=== PATIENT | male | born 1950 | race Hispanic/Latino ===

== ENCOUNTER 2019-09-11 12:57 | Inpatient (IN) | payer MEDICAID, OTHER ==
[~2019-09-11] VITALS: Ht 180.3 cm; Wt 63.1 kg
[2019-09-11] VITALS (18 sets, daily range): BP systolic 104–206; BP diastolic 60–123
[~2019-09-11 12:57] MED LIST: ASPI-1005 PO; AZIT500T4 PO; BUPR-74 PO; CLOP75TA14 PO; METO25 PO; PANT40TA PO; PRED20TA3 PO
[2019-09-11] MEDS ORDERED: HEPARIN SODIUM 1000UNIT/ML 10ML VIAL ONE (13:12)
[2019-09-11] MEDS ORDERED: NITROGLYCERIN 2 MG/VIAL VIAL IV ONE (13:12)
[2019-09-11] MEDS ORDERED: IOHEXOL 350 MG/ML 100ML INFUS..BTL IV ONE (13:13)
[2019-09-11] MEDS ORDERED: LIDOCAINE HCL 2% 20ML ONE (13:13)
[2019-09-11] MEDS ORDERED: IOHEXOL-350 50ML VIAL IV ONE ×2 (13:13→20:00)
[2019-09-11] MEDS ORDERED: ATROPINE SULFATE 0.1 MG/ML 10 ML SYG IVP ONE (13:43)
[2019-09-11] MEDS ORDERED: ONDANSETRON HCL 4 MG/2 ML VIAL ONE (14:09)
[2019-09-11] MEDS: SODIUM CHLORIDE 0.9% 1000ML 1,000 ML IV SCH ×2 (14:41→21:10)
[2019-09-11] MEDS ORDERED: ONDANSETRON HCL 4 MG/2 ML VIAL IVP PRN ×3 (14:45→22:00)
--- NOTE | 2019-09-11 16:50 | NUR ---
Dr Castle's office notified of Consult for voiding difficulty. Pending return phone call at this time
--- NOTE | 2019-09-11 16:52 | NUR ---
INITIAL Patient lives alone. Emergency contact is Orquidea Bhandari, sister, [phone]. Patient has no home services. DME: [employer]. 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 Patient also drives. PCP is Dr. Kavin Scott. Pharmacy is [facility] located in [place]. DCP is home. Addendum: 09/11/19 at 1654 by LIDYA RIVERA SS Amended: Links added.
--- NOTE | 2019-09-11 17:20 | NUR ---
Dr. Castle's office called again for stat consult, araceli gudino call from Dr. Castle. Page attempted three times. Pager appears to be off, no ringtone.
[2019-09-11 17:25] LABS: TROPONIN I 4.63 ng/mL (0.00-0.06)
--- NOTE | 2019-09-11 17:58 | NUR ---
I called Dr. Castle's number per Dr. Uribe's order for STAT urology Consult. Dr. Castle refused to talk to me because I am not an MD and he hung up the phone before I can explain to him why he is being consulted. I called Dr. Uribe and notified him of this. Dr. Uribe said he will call Dr. Castle himself.
[2019-09-11] MEDS ORDERED: MORPHINE SULFATE 2 MG/ML 1ML SYG IV PRN (18:15)
[2019-09-11] MEDS ORDERED: HYDRALAZINE HCL 20 MG/ML VIAL IV PRN (18:15)
[2019-09-11] MEDS ORDERED: MORPHINE SULFATE 2 MG/ML 1ML SYG ONE (18:18)
[2019-09-11] MEDS: PANTOPRAZOLE SODIUM 40 MG TABLET.DR PO SCH (18:28)
[2019-09-11] MEDS ORDERED: CEFAZOLIN SODIUM 1 GM VIAL IVP PRN (19:15)
[2019-09-11] MEDS ORDERED: FLU VACC QS2019-20 36MOS UP/PF 60 MCG/0.5 ML ML IM ONE (19:15)
[2019-09-11] MEDS ORDERED: LEVOFLOXACIN 500 MG/D5W 100 ML 100 ML ONE (19:56)
[2019-09-11] MEDS ORDERED: LIDOCAINE HCL 2% PF 20 ML JEL DISP.SYRIN MM ONE (19:58)
[2019-09-11] MEDS ORDERED: KETAMINE 50MG/ML SYRINGE 50 MG/ML DISP.SYRIN IV ONE (19:59)
[2019-09-11] MEDS ORDERED: PROPOFOL 10 MG/ML 20ML VIAL IV ONE ×2 (20:04→20:35)
[2019-09-11] MEDS ORDERED: FENTANYL CITRATE PF 50 MCG/1 ML 2ML VIAL ONE (20:04)
[2019-09-11] MEDS ORDERED: PHENYLEPHRINE HCL 10 MG/ML 1ML VIAL IV ONE (20:35)
[2019-09-11] MEDS ORDERED: HYDRALAZINE HCL 20 MG/ML VIAL ONE (20:40)
--- NOTE | 2019-09-11 21:30 | NUR ---
Patient arrived from OR after cystoscopic procedure by MD. Castle. Patient arrived with 3-way irrigation [place] 20F, tinged strawberry color urine. Family members at bedside, patient denies any chest pain,SOB, AOX3, call light within reach. Vitals signs stable, patient on 2L NS. No issues noted at this time.
[2019-09-11] MEDS ORDERED: MEPERIDINE-PF 100 MG/ML SYG IM PRN (21:45)
[2019-09-11 21:51] LABS: BASOPHILS % (AUTO) 0.2 % (0.0-5.0); EOSINOPHILS % (AUTO) 0.3 % (0.0-8.0); HEMATOCRIT 43.7 % (42-54); LYMPHOCYTES % (AUTO) 3.1 % (21.0-51.0); MEAN CORPUSCULAR HEMOGLOBIN 28.2 pg (27.0-33.0); MEAN CORPUSCULAR HGB CONC 32.3 g/dL (32.0-36.0); MEAN CORPUSCULAR VOLUME 87.4 fL (79-99); MONOCYTES % (AUTO) 3.7 % (3.0-13.0); NEUTROPHILS % (AUTO) 92.3 % (40.0-77.0); PLATELET COUNT (AUTO) 222 K/uL (130-400); RED CELL DISTRIBUTION WIDTH 13.2 % (11.0-15.5); WHITE BLOOD COUNT (AUTO) 18.8 K/uL (4.8-10.8)
[2019-09-11] MEDS ORDERED: OXYBUTYNIN 5 MG TAB.SR.24H PO STA (21:52)
[2019-09-11] MEDS ORDERED: MEPERIDINE-PF 75 MG/ML SYG IM PRN (22:00)
[2019-09-11] MEDS: ATORVASTATIN CALCIUM 10 MG TABLET PO SCH (22:04)
[2019-09-11] MEDS: OXYBUTYNIN CHLORIDE 5 MG TABLET PO SCH (22:04)
[2019-09-11 22:24] LABS: POTASSIUM 4.3 mmol/L (3.5-5.1)
[2019-09-11 22:25] LABS: CREATININE 1.2 mg/dL (0.5-1.5)
[2019-09-11 22:46] LABS: TROPONIN I 7.66 ng/mL (0.00-0.06)
[2019-09-12] VITALS (21 sets, daily range): BP systolic 93–141; BP diastolic 50–75
[2019-09-12 04:06] LABS: BASOPHILS % (AUTO) 0.3 % (0.0-5.0); HEMATOCRIT 39.3 % (42-54); LYMPHOCYTES % (AUTO) 8.3 % (21.0-51.0); MEAN CORPUSCULAR HEMOGLOBIN 27.7 pg (27.0-33.0); MEAN CORPUSCULAR HGB CONC 32.6 g/dL (32.0-36.0); MEAN CORPUSCULAR VOLUME 85.1 fL (79-99); MONOCYTES % (AUTO) 5.3 % (3.0-13.0); NEUTROPHILS % (AUTO) 85.7 % (40.0-77.0); PLATELET COUNT (AUTO) 251 K/uL (130-400); RED BLOOD CELL COUNT(AUTO) 4.62 MIL/uL (4.50-6.20); RED CELL DISTRIBUTION WIDTH 13.2 % (11.0-15.5); WHITE BLOOD COUNT (AUTO) 13.5 K/uL (4.8-10.8)
[2019-09-12 04:18] LABS: INR 1.06 (0.85-1.15); PROTHROMBIN TIME 11.4 SEC (9.6-11.6)
[2019-09-12 04:53] LABS: CREATININE 1.2 mg/dL (0.5-1.5); POTASSIUM 3.9 mmol/L (3.5-5.1)
[2019-09-12 05:00] LABS: TROPONIN I 9.02 ng/mL (0.00-0.06)
--- NOTE | 2019-09-12 06:11 | NUR ---
Patient sleeping. Had an approx 7 second run of wide complex tachycardia. Awakened patient. Denies pain, sob. BP 106/63, O2 sat- 100%, resp 15. Heart rhythm back to sinus, rate 68-70. Potassium level drawn at 0353 3.9. Will monitor patient and inform MD this morning.
[2019-09-12] MEDS ORDERED: LIDOCAINE HCL-MPF 1% 2ML VIAL IV PRN (06:45)
[2019-09-12] MEDS ORDERED: POTASSIUM CHLORIDE 10% ELIXIR 20 MEQ/15 ML UDCUP PO PRN (06:45)
[2019-09-12] MEDS ORDERED: MAGNESIUM 2GM PREMIX 50ML 50 ML IV PRN (06:45)
[2019-09-12] MEDS ORDERED: POTASSIUM CHLORIDE 20MEQ/100ML 100 ML IV PRN (06:45)
[2019-09-12] MEDS: PANTOPRAZOLE SODIUM 40 MG TABLET.DR PO SCH (07:05)
[2019-09-12 07:45] LABS: MAGNESIUM 2.1 mg/dL (1.80-2.40); POTASSIUM 4.1 mmol/L (3.5-5.1)
[2019-09-12] MEDS: CLOPIDOGREL BISULFATE 75 MG TAB PO SCH (09:24)
[2019-09-12] MEDS: OXYBUTYNIN CHLORIDE 5 MG TABLET PO SCH (09:24)
[2019-09-12] MEDS: ASPIRIN 325 MG TABLET PO SCH (09:24)
[2019-09-12] MEDS: METOPROLOL SUCCINATE 50 MG TAB.SR.24H PO SCH (09:24)
[2019-09-12] MEDS: LISINOPRIL 2.5 MG TABLET PO SCH (09:25)
[2019-09-12] MEDS: ATORVASTATIN CALCIUM 10 MG TABLET PO SCH (21:25)
[2019-09-13] VITALS (17 sets, daily range): BP systolic 106–146; BP diastolic 54–71
[2019-09-13 04:35] LABS: ALBUMIN 2.6 g/dL (3.5-5.0); BILIRUBIN,TOTAL 0.4 mg/dL (0.2-1.0); CREATININE 1.2 mg/dL (0.5-1.5); MAGNESIUM 2.2 mg/dL (1.80-2.40); POTASSIUM 3.4 mmol/L (3.5-5.1); TOTAL PROTEIN, SERUM 5.8 g/dL (6.0-8.3)
[2019-09-13] MEDS: POTASSIUM CHLORIDE 20 MEQ ERTAB PO PRN ×2 (06:28→10:16)
[2019-09-13] MEDS: PANTOPRAZOLE SODIUM 40 MG TABLET.DR PO SCH (06:31)
[2019-09-13] MEDS: LISINOPRIL 2.5 MG TABLET PO SCH (09:39)
[2019-09-13] MEDS: ASPIRIN 325 MG TABLET PO SCH (09:39)
[2019-09-13] MEDS: OXYBUTYNIN CHLORIDE 5 MG TABLET PO SCH (09:41)
[2019-09-13] MEDS: CLOPIDOGREL BISULFATE 75 MG TAB PO SCH (09:41)
[2019-09-13] MEDS: METOPROLOL SUCCINATE 50 MG TAB.SR.24H PO SCH (09:42)
[2019-09-13] MEDS: ATORVASTATIN CALCIUM 10 MG TABLET PO SCH (21:02)
[2019-09-14 00:08] VITALS: BP 131/64
[2019-09-14 04:35] VITALS: BP 133/79
[2019-09-14 05:23] LABS: BASOPHILS % (AUTO) 0.4 % (0.0-5.0); HEMATOCRIT 38.4 % (42-54); LYMPHOCYTES % (AUTO) 14.1 % (21.0-51.0); MEAN CORPUSCULAR HEMOGLOBIN 28.4 pg (27.0-33.0); MEAN CORPUSCULAR HGB CONC 33.1 g/dL (32.0-36.0); MEAN CORPUSCULAR VOLUME 85.9 fL (79-99); MONOCYTES % (AUTO) 5.8 % (3.0-13.0); NEUTROPHILS % (AUTO) 78.3 % (40.0-77.0); PLATELET COUNT (AUTO) 247 K/uL (130-400); RED BLOOD CELL COUNT(AUTO) 4.47 MIL/uL (4.50-6.20); RED CELL DISTRIBUTION WIDTH 13.2 % (11.0-15.5); WHITE BLOOD COUNT (AUTO) 11.4 K/uL (4.8-10.8)
[2019-09-14 05:49] LABS: ALBUMIN 2.6 g/dL (3.5-5.0); BILIRUBIN,TOTAL 0.5 mg/dL (0.2-1.0); CREATININE 1.1 mg/dL (0.5-1.5); POTASSIUM 3.5 mmol/L (3.5-5.1); TOTAL PROTEIN, SERUM 6.1 g/dL (6.0-8.3)
[2019-09-14] MEDS: PANTOPRAZOLE SODIUM 40 MG TABLET.DR PO SCH (06:29)
[2019-09-14] MEDS: POTASSIUM CHLORIDE 20 MEQ ERTAB PO PRN (06:30)
[2019-09-14 07:48] VITALS: BP 121/56
--- NOTE | 2019-09-14 08:15 | NUR ---
AM ASSESSMENT PT SITTING IN RECLINER, WATCHING TV. A/O X 3. NO SOB. NO DISTRESS NOTED. DENIES CHEST PAIN OR DISCOMFORT. DENIES PALPITATIONS. DENIES INCISIONAL PAIN. TELE: SR. DENIES N/V AND/OR DIARRHEA. RT GROIN SOFT, NON-TENDER. DSG DRY & INTACT. (+) BILATERAL PEDAL PULSES. BLE PINK & WARM TO TOUCH. CBI, CLEAR TO BE DC'D; NO HEMATURIA, NO BLOOD CLOTS IN URINE. 20 [address] 3[address] POWERS CATHETER, PATENT & DRAINING. UP W/ASSISTANCE. INSTRUCTED TO CALL FOR ASSISTANCE. CALL EMMANUEL W/IN REACH.
[2019-09-14] MEDS: ASPIRIN 325 MG TABLET PO SCH (08:23)
[2019-09-14] MEDS: LISINOPRIL 2.5 MG TABLET PO SCH (08:23)
[2019-09-14] MEDS: OXYBUTYNIN CHLORIDE 5 MG TABLET PO SCH (08:23)
[2019-09-14] MEDS: CLOPIDOGREL BISULFATE 75 MG TAB PO SCH (08:23)
[2019-09-14] MEDS: METOPROLOL SUCCINATE 50 MG TAB.SR.24H PO SCH (08:24)
[2019-09-14 11:45] VITALS: BP 118/60
[2019-09-14] MEDS ORDERED: CLOP75TA14 PO (13:06)
[2019-09-14] MEDS ORDERED: LISI2.5T2 PO (13:06)
[2019-09-14] MEDS ORDERED: METO50TA9 PO (13:06)
[2019-09-14] MEDS ORDERED: OXYB5 PO (13:06)
[2019-09-14] MEDS ORDERED: ATOR10 PO (13:06)
[2019-09-14 15:58] VITALS: BP 116/62
--- NOTE | 2019-09-14 17:30 | NUR ---
DISCHARGE VERBAL & WRITTEN DISCHARGE INSTRUCTIONS REVIEWED & GIVEN TO PT. QUESTIONS ENCOURAGED & CLARIFIED. PROPER CARE & ACTIVITY AFTER LHC W/STENT REVIEWED. NEW PRESCRIBED MEDICATIONS REVIEWED. PRESCRIPTION GIVEN TO PT. COPY OF PRESCRIPTION PLACED IN CHART. REINFORCED IMPORTANCE OF TAKING PLAVIX & ASA PRESCRIBED & NOT MISSING A DOSE. STATES UNDERSTANDING. TELE SAROJ REMOVED. IV X 2 DC'D. POWERS BAG DC'D AND LEG BAG APPLIED. CARE & MGT OF LEG BAR REVIEWED. PT TO GATHER PERSONAL BELONGINGS. WILL NOTIFY STAFF WHEN FRIEND ARRIVES TO HOSPITAL TO TAKE PT HOME.
--- NOTE | 2019-09-14 17:55 | NUR ---
DISCHARGE FRIEND HERE TO TAKE PT HOME. PT TAKEN TO PRIVATE VEHICLE VIA WC BY Nino YIP PCP. NO DISTRESS NOTED.
== END 2019-09-14 17:55 | disposition home or self-care (01) | DRG 654 ==
LOC: EDHIP 13:10 → 2BH 15:41 → 2DH 09-13 19:48
PROVIDERS: ADMIT Internal Medicine; ATTEND Internal Medicine
PROC: B2111ZZ Fluoroscopy of Multiple Coronary Arteries using Low Osmolar Contrast (ICD-10-PCS; 2019-09-11)
PROC: B2151ZZ Fluoroscopy of Left Heart using Low Osmolar Contrast (ICD-10-PCS; 2019-09-11)
PROC: 3E02340 Introduction of Influenza Vaccine into Muscle, Percutaneous Approach (ICD-10-PCS; 2019-09-11)
PROC: 0TCB8ZZ Extirpation of Matter from Bladder, Via Natural or Artificial Opening Endoscopic (ICD-10-PCS; 2019-09-11)
PROC: BT101ZZ Fluoroscopy of Bladder using Low Osmolar Contrast (ICD-10-PCS; 2019-09-11)
PROC: 0T7B8DZ Dilation of Bladder with Intraluminal Device, Via Natural or Artificial Opening Endoscopic (ICD-10-PCS; principal; 2019-09-11 20:00)
PROC: 02703ZZ Dilation of Coronary Artery, One Artery, Percutaneous Approach (ICD-10-PCS; 2019-09-11 20:00)
PROC: 4A023N7 Measurement of Cardiac Sampling and Pressure, Left Heart, Percutaneous Approach (ICD-10-PCS; 2019-09-11 20:00)
DX: N32.89 Other specified disorders of bladder (principal); T82.867A Thrombosis due to cardiac prosthetic devices, implants and grafts, initial encounter; N40.1 Benign prostatic hyperplasia with lower urinary tract symptoms; R33.8 Other retention of urine; I25.10 Atherosclerotic heart disease of native coronary artery without angina pectoris; R31.0 Gross hematuria; N21.0 Calculus in bladder; E78.5 Hyperlipidemia, unspecified; I10 Essential (primary) hypertension; I25.5 Ischemic cardiomyopathy; J44.9 Chronic obstructive pulmonary disease, unspecified; Y83.1 Surgical operation with implant of artificial internal device as the cause of abnormal reaction of the patient, or of later complication, without mention of misadventure at the time of the procedure; I25.2 Old myocardial infarction; Z79.82 Long term (current) use of aspirin; Z90.79 Acquired absence of other genital organ(s); Z87.442 Personal history of urinary calculi; Z91.14 Patient's other noncompliance with medication regimen; Z91.19 Patient's noncompliance with other medical treatment and regimen; Y92.89 Other specified places as the place of occurrence of the external cause; Z87.891 Personal history of nicotine dependence; Z23 Encounter for immunization
CPT/HCPCS: 36415; 74430; 80048; 80053; 80061; 82550; 82948; 83735; 83874; 84132; 84484; 85025; 85610; 92920; 93005; 93458; A4354; C1725; C1758; C1760; C1769; C1887; C1894; G0378; J0360; J0461; J0690; J1644; J1956; J2175; J2370; J2405; J2704; J3010; J3490; Q2035; Q9967